=== PATIENT | male | born 1995 | race Caucasian/White ===

== ENCOUNTER 2018-09-18 09:41 | Emergency (ER) | payer OTHER ==
[~2018-09-18] VITALS: Ht 172.7 cm; Wt 63.0 kg
[2018-09-18 10:03] VITALS: Ht 172.7 cm; Wt 63.0 kg
[2018-09-18 11:43] VITALS: BP 163/123
== END 2018-09-18 11:43 | disposition home or self-care (01) ==
LOC: ED 09:41
DX: S09.8XXA Other specified injuries of head, initial encounter (principal); Y04.8XXA Assault by other bodily force, initial encounter; Y93.89 Activity, other specified; Y92.89 Other specified places as the place of occurrence of the external cause; Y99.8 Other external cause status